=== PATIENT | male | born 1995 | race African-American/Black ===

== ENCOUNTER 2017-01-06 16:14 | Emergency (ER) | payer MEDICAID ==
[~2017-01-06] VITALS: Ht 170.2 cm; Wt 70.3 kg
--- NOTE | 2017-01-06 17:04 | Emergency Room Report ---
History of Present Illness General Chief Complaint: Upper Respiratory Illness Source: Patient Present Illness HPI 21 -year-old male presents emergency department complaining of 6/10 severity sore throat times one week with clear mucus production. Patient denies cough he reports increase in phlegm in his throat in addition to pain. Patient denies nausea, vomiting, fevers, chills. Pt. reports seasonal allergies and states he uses nasonex. Patient denies ill contacts or recent travel. He denies neck pain or stiffness. Mild abdominal pain, rashes, headaches. Denies CP, Palpitations, LOC, AMS, dizziness, Changes in Vision, Sensation, paresthesias, or a sudden severe headache. Allergies: Coded Allergies: No Known Allergies (Unverified , 01/06/17) Patient History Past Medical History: see triage record Past Surgical History: none Pertinent Family History: none Reviewed Nursing Documentation: PMH: Agreed, PSxH: Agreed Nursing Documentation-PMH Past Medical History: No History, Except For Review of Systems All Other Systems: negative except mentioned in HPI Physical Exam Vital Signs Date Time Temp Pulse Resp B/P Pulse Ox O2 Delivery O2 Flow Rate FiO2 01/06/17 16:32 98.4 68 18 136/87 99 Room Air Sp02 EP Interpretation: reviewed, normal General Appearance: no apparent distress, alert, GCS 15, non-toxic Head: normocephalic, atraumatic Eyes: bilateral eye PERRL, bilateral eye normal inspection ENT: hearing grossly normal, normal pharynx, no angioedema, normal voice, TMs + canals normal, uvula midline, nasal congestion - clear rhinorrhea, pharyngeal erythema, other - no exudates Neck: full range of motion, no meningismus, no bony tend, supple/symm/no masses Respiratory: chest non-tender, lungs clear, normal breath sounds, no rhonchi, no wheezing, speaking full sentences Cardiovascular #1: regular rate, rhythm, no edema Musculoskeletal: back normal, gait/station normal, normal range of motion, non- tender Neurologic: alert, oriented x3, responsive, motor strength/tone normal, sensory intact, speech normal Psychiatric: judgement/insight normal, memory normal, mood/affect normal, no suicidal/homicidal ideation Skin: normal color, no rash, warm/dry, well hydrated Lymphatic: no adenopathy Medical Decision Making PA Attestation Dr. Gallardo is my supervising Physician whom patient management has been discussed with. Diagnostic Impression: Primary Impression: Pharyngitis, acute Qualified Codes: J02.9 - Acute pharyngitis, unspecified ER Course 21 -year-old male presents emergency department complaining of 6/10 severity sore throat times one week with clear mucus production. Patient denies cough he reports increase in phlegm in his throat in addition to pain. Patient denies nausea, vomiting, fevers, chills. Patient denies ill contacts or recent travel. He denies neck pain or stiffness. Mild abdominal pain, rashes, headaches. Ddx considered but are not limited to: pharyngitis, strep, [employer], ludwigs angina, URI Vital signs: are WNL, pt. is afebrile H&PE are most consistent with: pharyngitis pt. does not meet centor criteria, strep is not suspected at this time. ORDERS: None required at this time as the diagnosis is clinical ED INTERVENTIONS: none required at this time. DISCHARGE: At this time pt. is stable for d/c to home. Will provide printed patient care instructions, and any necessary prescriptions. Care plan and follow up instructions have been discussed with the patient prior to discharge. Last Vital Signs Date Time Temp Pulse Resp B/P Pulse Ox O2 Delivery O2 Flow Rate FiO2 01/06/17 16:32 98.4 68 18 136/87 99 Room Air Disposition: HOME, SELF-CARE Condition: Stable Scripts Guaifenesin (Guaifenesin) 1,200 Mg Tab.er.12h 1200 MG PO BID for 10 Days, #20 TAB Prov: Cynthia Peña 01/06/17 Cetirizine Hcl* (ZYRTEC*) 10 Mg Tablet 10 MG ORAL DAILY for 14 Days, #30 TAB 0 Refills Prov: Cynthia Peña 01/06/17 Lidocaine HCl (Lidocaine HCl Viscous) 100 Ml Solution 20 ML PO QID, #200 ML Prov: Cynthia Peña 01/06/17 Referrals: NOT CHOSEN IPA/,REFERRING (PCP) Patient Instructions: Pharyngitis, [id number] Additional Instructions: Take medications as directed. Follow up with PCP in 3-5 days Return sooner to ED if new symptoms occur, or current symptoms become worse. - Please note that this Emergency Department Report was dictated using [employer] fence erector technology software, occasionally this can lead to erroneous entry secondary to interpretation by the dictation equipment. Cynthia Peña Jan 06, 2017 17:04
[2017-01-06] MEDS ORDERED: LIDOCAINE VISCO20 ML PO (17:06)
[2017-01-06] MEDS ORDERED: GUAIFENESIN1200 MG PO (17:06)
[2017-01-06] MEDS ORDERED: ZYRTEC10 MG ORAL (17:06)
[2017-01-06 17:15] VITALS: BP 136/87
[2017-01-06 17:18] VITALS: BP 136/87
== END 2017-01-06 17:18 | disposition home or self-care (01) ==
LOC: EMR 16:48
DX: J02.9 Acute pharyngitis, unspecified (principal); R10.9 Unspecified abdominal pain; R21 Rash and other nonspecific skin eruption; R51 Headache
CPT/HCPCS: 99284